=== PATIENT | male | born 1975 | race Caucasian/White ===

== ENCOUNTER 2023-01-21 01:49 | Emergency (ER) | payer OTHER, SELFPAY ==
[2023-01-21] VITALS (7 sets, daily range): BP systolic 118–147; BP diastolic 39–91; PULSE 67–79; RESP 10–23; TEMP 36.6; O2SAT 98–100; BMI 22.3
--- NOTE | 2023-01-21 02:39 | ED.ARRPALP ---
HPI - Arrhythmia/Palpitations General Chief Complaint: Arrhythmia/Palpitations Stated Complaint: racing heart Time Seen by Provider: 01/21/23 02:12 Source: patient Mode of arrival: Ambulatory History of Present Illness HPI narrative: Patient is a 47-year-old male who is here for evaluation of an episode that occurred earlier this evening. He states that he had a period of time where his heart was beating very fast. He states that the episode lasted approximately 1 minute he is had 3 of them. He is not currently having symptoms although the last time he had then was driving into the emergency department. No chest pain or shortness of breath. He is not passed out. No change in medications. No fevers. Review of Systems Review of Systems ROS Unobtainable: All systems reviewed & are unremarkable except as noted in HPI and below Patient History Social History Smoking Status: Never smoker Smoking Status: Never smoker alcohol intake frequency: 0-2 drinks per day Substance Use Type: does not use Exam Initial Vital Signs Initial Vital Signs: Vital Signs Temperature 97.8 F 01/21/23 02:17 Pulse Rate 78 01/21/23 02:17 Respiratory Rate 18 01/21/23 02:17 Blood Pressure 147/39 H 01/21/23 02:17 Pulse Oximetry 99 01/21/23 02:17 Oxygen Delivery Method Room Air 01/21/23 02:17 Const General: cooperative, comfortable and No ill appearing HENMT Head: normal to inspection and normocephalic Resp Effort & Inspection: normal respiratory effort Auscultation: clear to auscultation bilaterally Cardio Rate: regular rate Rhythm: regular rhythm GI Inspection: normal to inspection and non-distended Skin General: no rashes or lesions noted Neuro General: patient alert, patient awake and moves all extremities Extrem General: normal to inspection and capillary refill normal Course Orders Ordered: ED Orders 01/21/23 02:12 EKG-12 Lead Stat 01/21/23 02:55 Basic Metabolic Panel Stat Complete Blood Count AUTO DIFF Stat Magnesium Stat Thyroid Stimulating Hormone Stat Vital Signs Vital signs: Vital Signs - 8 hr 01/21/23 02:17 01/21/23 02:27 01/21/23 02:28 Temperature 97.8 F Pulse Rate 78 79 Respiratory Rate 18 Blood Pressure 147/39 H 136/89 Pulse Oximetry 99 99 Oxygen Delivery Method Room Air 01/21/23 02:28 01/21/23 02:30 01/21/23 02:30 Temperature Pulse Rate 76 74 Respiratory Rate 10 L Blood Pressure 132/91 H Pulse Oximetry 99 100 Oxygen Delivery Method 01/21/23 03:00 01/21/23 03:30 Temperature Pulse Rate 74 69 Respiratory Rate 23 Blood Pressure Pulse Oximetry 99 99 Oxygen Delivery Method MDM - Arrhythmia/Palpitations Lab Data Attestation: I reviewed the patient's lab results. 01/21/23 02:55 01/21/23 02:55 Labs: Lab Results 01/21/23 01/21/23 01/21/23 Range/Units 02:55 02:55 02:55 WBC 6.9 (4.5-11.0) X10^3/uL RBC 4.95 (4.5-5.9) X10^6/uL Hgb 15.3 (13.5-17.5) g/dL Hct 43.3 (41-53) % MCV 87.6 (80-100) fL MCH 30.9 (26-34) PG MCHC 35.3 (30-36) % RDW 12.4 (11.6-14.8) % Plt Count 164 (150-400) X10^3/uL Neut % (Auto) 60.7 (50-75) % Lymph % (Auto) 28.7 (25-40) % [place] % (Auto) 7.0 (3-14) % Eos % (Auto) 2.9 (2-4) % Baso % (Auto) 0.7 (0-2) % Neut # (Auto) 4200 (2206-3549) /uL Lymph # (Auto) 2000 (6318-4077) /uL [place] # (Auto) 500 (0-900) /uL Eos # (Auto) 200 (0-450) /uL Baso # (Auto) 0 (0-100) /uL Sodium 137 (137-145) mmol/L Potassium 3.6 (3.4-5.1) mmol/L Chloride 100 (98-107) mmol/L Carbon Dioxide 29 (22-32) mmol/L BUN 19 (9-20) mg/dL Creatinine 0.93 (0.66-1.25) mg/dL Estimated GFR > 60 (>60) mL/min BUN/Creatinine Ratio 20.4 (6-22) Glucose 103 H (70-100) mg/dL Calcium 8.9 (8.4-10.2) mg/dL Magnesium 1.9 (1.6-2.3) mg/dL TSH 5.18 H (0.47-4.68) uIU/mL ECG Data Attestation: I personally reviewed and interpreted this ECG as follows: Interpretation: Sinus rhythm Ventricular rate 82 Left axis deviation Incomplete right bundle-branch block QRS 1 want to QTC 457 MDM Narrative Medical decision making narrative: Patient has had no ectopy with a time of observation here in the emergency department. His electrolytes are unremarkable. He does have a TSH that is slightly elevated although I feel this is less likely the cause of his symptoms. He does endorse that he has had some issues with anxiety. Informed him that he should talk with his primary doctor about follow-up to include further workup to include a potential Holter monitor. He also understands that he needs to talk with his primary doctor about the slightly elevated TSH today. He was given return precautions. He expressed understanding and agreement. Discharge Plan Departure Patient Disposition: Home Clinical Impression: Palpitations Instructions: Arrhythmias Activity Restrictions/Additional Instructions: Recommend that you contact your primary doctor for follow-up to discuss the indications for Holter monitor and also to talk about the slightly elevated thyroid test that was found on labs today. Return to the emergency department for any new or worsening symptoms. Stand Alone Forms: Patient Portal/API
[2023-01-21 02:59] LABS: Add Manual Diff / Slide Review NO; Basophils Absolute Auto 0 /uL (0-100); Basophils Percent Auto 0.7 % (0-2); Eosinophils Absolute Auto 200 /uL (0-450); Eosinophils Percent Auto 2.9 % (2-4); Hematocrit 43.3 % (41-53); Hemoglobin 15.3 g/dL (13.5-17.5); Lymphocytes Absolute Auto 2000 /uL (1100-4500); Lymphocytes Percent Auto 28.7 % (25-40); Mean Corpuscular HGB Conc 35.3 % (30-36); Mean Corpuscular Hemoglobin 30.9 PG (26-34); Mean Corpuscular Volume 87.6 fL (80-100); Monocytes Absolute Auto 500 /uL (0-900); Neutrophils Absolute Auto 4200 /uL (1500-7000); Neutrophils Percent Auto 60.7 % (50-75); Platelet Count 164 X10^3/uL (150-400); Red Blood Cell Count 4.95 X10^6/uL (4.5-5.9); Red Cell Distribution Width 12.4 % (11.6-14.8); White Blood Cell Count 6.9 X10^3/uL (4.5-11.0)
[2023-01-21 03:12] LABS: BUN Creatinine Ratio 20.4 (6-22); Blood Urea Nitrogen 19 mg/dL (9-20); Calcium 8.9 mg/dL (8.4-10.2); Carbon Dioxide 29 mmol/L (22-32); Chloride 100 mmol/L (98-107); Estimated Glomerular Filt Rate > 60 mL/min (>60); Glucose 103 mg/dL (70-100); HEMOLYSIS 25 (0-50); Magnesium 1.9 mg/dL (1.6-2.3); Potassium 3.6 mmol/L (3.4-5.1); Sodium 137 mmol/L (137-145)
[2023-01-21 03:43] LABS: Thyroid Stimulating Hormone 5.18 uIU/mL (0.47-4.68)
== END 2023-01-21 04:06 | disposition home or self-care (01) ==
PROVIDERS: Emergency Provider Emergency Medicine
DX: R00.2 Palpitations (principal)
CPT/HCPCS: 80048; 83735; 84443; 85025; 93005; 93010; 99283; 99284